=== PATIENT | female | born 2000 | race African-American/Black ===

== ENCOUNTER 2023-11-19 22:14 | Emergency (ER) | payer MEDICAID ==
[~2023-11-19] VITALS: Ht 167.6 cm; Wt 97.0 kg
[2023-11-19 23:43] LABS: BASOPHILS % (AUTO) 0.3 % (0-1); EOSINOPHILS # (AUTO) 0.2 X10'3 (0-0.9); EOSINOPHILS % (AUTO) 1.3 % (0-6); HEMATOCRIT 36.2 % (35.0-45.0); HEMOGLOBIN 11.4 g/dl (12.0-16.0); LYMPHOCYTES # (AUTO) 2.2 X10'3 (1.1-4.8); MEAN CORPUSCULAR HEMOGLOBIN 23.6 PG (27.0-31.0); MEAN CORPUSCULAR HGB CONC 31.5 g/dL (33.0-36.5); MONOCYTES # (AUTO) 0.6 X10'3 (0-0.9); MONOCYTES % (AUTO) 4.4 % (2-12); NEUTROPHILS # (AUTO) 9.8 X10'3 (1.8-7.7); PLATELET COUNT 304 X10'3 (140-440); RED BLOOD COUNT 4.83 X10'6 (4.20-5.60); RED CELL DISTRIBUTION WIDTH 13.7 % (11.5-14.5); WHITE BLOOD COUNT 12.8 X10'3 (4.5-11.0)
[2023-11-19 23:49] LABS: ALBUMIN 3.5 G/DL (3.4-5.0); ANION GAP 8 (8-16); BLOOD UREA NITROGEN 9 MG/DL (7-18); BUN/CREATININE RATIO 13.4 (10.0-20.0); CALCIUM 9.2 MG/DL (8.5-10.1); CHLORIDE 104 MMOL/L (99-107); CREATININE 0.67 MG/DL (0.40-0.90); GLUCOSE 88 MG/DL (70-104); POTASSIUM 3.5 MMOL/L (3.5-5.1); SODIUM 139 MMOL/L (135-145); TOTAL CARBON DIOXIDE 27.3 MMOL/L (24-32); eCRCL 121 ML/MIN; eGFR > 90 ML/MIN
[2023-11-20 00:13] LABS: BILIRUBIN,URINE NEGATIVE (Neg); CLARITY,URINE SLIGHTLY CLOUDY (Clear); COLOR,URINE YELLOW (Yellow); GLUCOSE, URINE NEGATIVE (Neg); KETONES,URINE NEGATIVE (Neg); LEUKOCYTE ESTERASE ,URINE NEGATIVE (Neg); NITRITES, URINE NEGATIVE (Neg); OCCULT BLOOD,URINE NEGATIVE (Neg); PH,URINE 5.5 (4.8-8.0); PROTEIN,URINE NEGATIVE (Neg); UROBILINOGEN,URINE 0.2 E.U/dL (0.2-1.0)
[2023-11-20 00:21] LABS: UA COLLECTION TYPE CLN CATCH MIDSTREAM
[2023-11-20 00:22] LABS: MUCUS STRANDS MANY /LPF (Neg); SQUAMOUS EPITHELIAL CELL,UR MANY /LPF (FEW)
[2023-11-20 00:23] LABS: BACTERIA,URINE 2+ /HPF (Neg); RBC,URINE NONE SEEN /HPF (0-2); WBC,URINE 0-4 /HPF (0-4)
[2023-11-20 00:25] LABS: URINE HCG POSITIVE (NEG)
[2023-11-20] MEDS ORDERED: PNV1TABL75 PO (00:37)
[2023-11-20 00:48] VITALS: BP 137/74; PULSE 94; RESP 13; TEMP 98.6; O2SAT 97
== END 2023-11-20 00:50 | disposition home or self-care (01) ==
LOC: ER 22:17
DX: O26.891 Other specified pregnancy related conditions, first trimester (principal); K59.00 Constipation, unspecified; F17.200 Nicotine dependence, unspecified, uncomplicated
CPT/HCPCS: 36415; 80048; 81001; 81025; 85025; 86885; 86900; 86901; 99283

== ENCOUNTER 2023-11-26 01:58 | Emergency (ER) | payer MEDICAID ==
[~2023-11-26] VITALS: Ht 165.1 cm; Wt 95.0 kg
[~2023-11-26 01:58] MED LIST: PNV1TABL75 PO
[2023-11-26] MEDS: metoclopramide 10mg tablet PO ONE (02:58)
[2023-11-26] MEDS: acetaminophen 325mg tablet PO ONE (02:58)
[2023-11-26 04:10] LABS: BILIRUBIN,URINE NEGATIVE (Neg); CLARITY,URINE CLEAR (Clear); COLOR,URINE YELLOW (Yellow); GLUCOSE, URINE NEGATIVE (Neg); KETONES,URINE NEGATIVE (Neg); LEUKOCYTE ESTERASE ,URINE NEGATIVE (Neg); NITRITES, URINE NEGATIVE (Neg); OCCULT BLOOD,URINE LARGE (Neg); PH,URINE 5.5 (4.8-8.0); PROTEIN,URINE NEGATIVE (Neg); UROBILINOGEN,URINE 0.2 E.U/dL (0.2-1.0)
[2023-11-26 04:12] LABS: URINE HCG POSITIVE (NEG)
[2023-11-26 04:16] LABS: UA COLLECTION TYPE CLN CATCH MIDSTREAM
[2023-11-26 04:18] LABS: BACTERIA,URINE NONE SEEN /HPF (Neg); MUCUS STRANDS NONE SEEN /LPF (Neg); SQUAMOUS EPITHELIAL CELL,UR FEW /LPF (FEW); WBC,URINE NONE SEEN /HPF (0-4)
[2023-11-26 04:48] LABS: ALBUMIN 3.5 G/DL (3.4-5.0); ANION GAP 15 (8-16); BASOPHILS % (AUTO) 0.3 % (0-1); BLOOD UREA NITROGEN 8 MG/DL (7-18); BUN/CREATININE RATIO 13.1 (10.0-20.0); CALCIUM 8.6 MG/DL (8.5-10.1); CHLORIDE 104 MMOL/L (99-107); CREATININE 0.61 MG/DL (0.40-0.90); EOSINOPHILS # (AUTO) 0.2 X10'3 (0-0.9); EOSINOPHILS % (AUTO) 1.6 % (0-6); GLUCOSE 92 MG/DL (70-104); HEMATOCRIT 36.8 % (35.0-45.0); HEMOGLOBIN 11.6 g/dl (12.0-16.0); LYMPHOCYTES # (AUTO) 2.6 X10'3 (1.1-4.8); LYMPHOCYTES % (AUTO) 21.9 % (21-51); MEAN CORPUSCULAR HEMOGLOBIN 23.7 PG (27.0-31.0); MEAN CORPUSCULAR HGB CONC 31.6 g/dL (33.0-36.5); MEAN CORPUSCULAR VOLUME 74.8 FL (78-98); MEAN PLATELET VOLUME 9.1 FL (7.4-10.4); MONOCYTES # (AUTO) 0.5 X10'3 (0-0.9); MONOCYTES % (AUTO) 4.6 % (2-12); NEUTROPHILS # (AUTO) 8.6 X10'3 (1.8-7.7); NEUTROPHILS % (AUTO) 71.6 % (42-75); PLATELET COUNT 284 X10'3 (140-440); POTASSIUM 3.7 MMOL/L (3.5-5.1); RED BLOOD COUNT 4.92 X10'6 (4.20-5.60); RED CELL DISTRIBUTION WIDTH 13.5 % (11.5-14.5); SODIUM 140 MMOL/L (135-145); eCRCL 128 ML/MIN; eGFR > 90 ML/MIN
[2023-11-26 05:01] LABS: BETA HCG,QUANTITATIVE 43278 mIU/ml
[2023-11-26 06:12] VITALS: BP 115/66; PULSE 91; RESP 16; TEMP 98.1; O2SAT 100
== END 2023-11-26 06:17 | disposition home or self-care (01) ==
LOC: ER 01:59
DX: O20.0 Threatened abortion (principal); Z3A.12 12 weeks gestation of pregnancy
CPT/HCPCS: 36415; 76801; 80048; 81001; 81025; 84702; 85025; 86900; 86901; 99284